=== PATIENT | male | born 1960 | race American Indian/Alaskan Native ===

== ENCOUNTER 2023-11-08 12:47 | Outpatient (AMB) | payer MEDICARE, MEDICAID, SELFPAY ==
--- NOTE | 2023-11-08 13:09 | A.OFFVIS_ITS ---
Vital Signs 11/08/23 13:14 Height 6 ft Weight 251 lb 5.231 oz BMI 34.1 BP 116/73 Blood Pressure Location Lt brachial Position Sitting Pulse 79 Intake Visit Reasons: Dysphagia Intake Note: Arcenio presents in the office as a new patient for Dysphagia. CC: Here today because he is having issues swallowing - he went to [place] for this as well. He thinks that he swallowed curosive acid and he states he was having burning in his mouth. He went to the ED at [facility] and [facility]. He states that he was eating pasta with spicy sausage and he feels that it was in the food. Audit Machine Operator Required: No Allergies codeine Allergy (Intermediate, Verified 02/16/24 15:59) Nausea HPI Comments Details: 63 y.o M who is here for dysphagia. Pt reports feeling burning sensation after having spicy sausage back in May which he felt burnt his mouth and throat. He went to ER as well for this twice in May. Pt alludes to a chemical in the sausage that may have been there but reports having the same food a couple of nights ago. Since then pt has been to [facility] and [facility] ER multiple times for same symptoms. Was seen in [facility] for same sx and reports having a laryngoscopy. ? LPR. Currently pt reports regurgitation, sensation of food getting stuck. Had MBS done which was normal. Currently omeprazole 20 BID. Pt also due for a colo. Last one was >10 years ago. no polyps per his recall. No diarrhea, rectal bleeding reported. [facility] Medical History (Updated 02/16/24 @ 16:16 by Aarti Arroyo RN) Back pain Anxiety Poor dentition Asthma Surgical History (Updated 02/16/24 @ 16:04 by Aarti Arroyo RN) History of carpal tunnel release of both wrists Hx of arthroscopy of knee History of back surgery Hx of hernia repair Hx of colonoscopy Social History (Updated 02/16/24 @ 16:05 by Aarti Arroyo RN) Are you a primary livestock caretaker to a significant other at home: No Do you presently have visiting nurse or other home services: No Patient Tobacco Use Status: Never used Tobacco Use of substances other than those prescribed or required for medical reasons: Yes Substance Use Frequency: Occasionally Have you been hit, kicked, punched, or otherwise hurt by someone within the past year? If so, by whom?: No Are you DNR?: No Advance Directives: No Advance Directives Information Provided: No Advance Directives on File: No Recently lost weight without trying: No Nutrition Risks: No Nutritional Risk Poor oral hygiene: Yes (many missing and broken teeth) Review of Systems Const All systems reviewed & are unremarkable except as noted in HPI and below Physical Exam Vital Signs: Last Vital Signs Pulse 79 11/08/23 13:14 BP 116/73 11/08/23 13:14 BMI result Body Mass Index 34.1 No apparent distress Nonicteric Abdomen soft, nondistended Alert and oriented x3, normal gait Assessment & Plan Assessment & Plan (1) Dysphagia: Code(s): R13.10 - Dysphagia, unspecified Category: Medical (2) GERD (gastroesophageal reflux disease): Code(s): K21.9 - Gastro-esophageal reflux disease without esophagitis Category: Medical (3) Colon cancer screening: Code(s): Z12.11 - Encounter for screening for malignant neoplasm of colon Category: Medical Plan Current sx likely 2/2 GERD. Attempted to educate multiple times that possible burn injury from May was self limiting and will likely not be seen on endoscopy now. EGD will be booked for reported dysphagia to r/o watson/web/EoE. Pt also due for colorectal cancer screenign and tehrefore a colonoscopy will be set up at the same time. PEG prep given. Instructions reviewed and handout given. Follow up after procedures Medications: New peg 3350-electrolytes 236-22.74-6.74 -5.86 gram (Golytely) as per split prep instructions, until fecal effluent is clear 240 mL PO Q10M 4,000 mL 0RF colonoscopy Coding Level of Care Code New Pt Level 4 (87181) Diagnoses Dysphagia R13.10 GERD (gastroesophageal reflux disease) K21.9 Colon cancer screening Z12.11
[2023-11-08 13:14] VITALS: BP 116/73; PULSE 79; BMI 34.1
== END 2023-11-08 13:55 | disposition home or self-care (01) ==
PROVIDERS: PCP Internal Medicine; Visit Provider Internal Medicine
DX: R13.10 Dysphagia, unspecified (principal); K21.9 Gastro-esophageal reflux disease without esophagitis; Z12.11 Encounter for screening for malignant neoplasm of colon
CPT/HCPCS: 99204

== ENCOUNTER → 2023-11-08 12:47 | Outpatient (BNVA) | payer MEDICARE, SELFPAY | PROVIDERS: PCP Internal Medicine; Visit Provider Internal Medicine | DX: R13.10 Dysphagia, unspecified (principal); K21.9 Gastro-esophageal reflux disease without esophagitis | CPT/HCPCS: 99202 ==

== ENCOUNTER 2024-02-20 07:29 | Day surgery (SDC) | payer MEDICARE, MEDICAID, SELFPAY ==
[2024-02-16 12:06] VITALS: BMI 34.1
[2024-02-16 16:12] VITALS: BMI 33.2
--- OUTSIDE RECORDS SUMMARY | 2024-02-20 07:32 | XMS_ITS | Continuity of Care Document ---
Author Organization [facility] Address [address] [place] [address]- Care Team Providers Care Insole Reinforcer Name Role Phone Conchis GERMAIN, Reji Donis Primary Care Physician Encounter [facility] Date(s): 12/27/23 - 01/26/24 [facility] [address] [place], [place] [address] Encounter Type: Triage Allergies, Adverse Reactions, Alerts Substance Criticality Severity Reaction Reaction Severity Status codeine Nausea Active Immunizations Given and Recorded Vaccine Date Status Refusal Reason tetanus/diphtheria/pertussis, acel(Tdap) 12/04/23 Given tetanus/diphtheria/pertussis, acel(Tdap) 1 03/15/18 Given pneumococcal 23-valent vaccine 09/28/16 Given 1Result Comment: [03/15/2018] [id number] Medications Albuterol (Eqv-Ventolin HFA) 90 mcg/inh inhalation aerosol 2 puffs, Inhalation, Every 6 hours, # 6.7 Gm, 1 Refills, Maintenance, 11/01/23 11:24:00 PM EDT, [id number], Partial fill upon patient request if the prescription is for a schedule II opioid drug., 2 puffs Inhalation Every 6 hours, 183, cm, 08/30/23 8:18:00 EDT, Height, 111.7, kg, 08/30/23 8:18:00 EDT, Dry Weight Start Date: 11/01/23 Status: Ordered Quantity: 6.7 Unit: g Repeat number: 2 albuterol 0.083% inhalation solution 1 vials, Inhalation, Every 4 hours, PRN NEEDED FOR WHEEZING J44.9, # 150 mL, 0 Refills, Maintenance, 07/24/23 11:09:00 AM EDT, [id number], 183, cm, 06/27/23 13:21:00 EDT, Height, 108.5, kg, 05/28/23 4:25:00 EDT, Dry Weight Start Date: 07/24/23 Status: Ordered Quantity: 150.0 Unit: mL Repeat number: 1 docusate sodium 100 mg oral capsule 1 capsule, By Mouth, 2 times a day, PRN NEEDED, # 180 capsule, 3 Refills, Maintenance, 11/21/23 4:31:00 PM EDT, [id number], 183, cm, 08/30/23 8:18:00 EDT, Height, 111.7, kg, 08/30/23 8:18:00 EDT, Dry Weight Start Date: 11/21/23 Status: Ordered Quantity: 180.0 Unit: capsule Repeat number: 4 Dulcolax 10 mg rectal suppository 1 supp = 10 mg, Rectally, Daily, PRN as needed for constipation, # 10 supp, 1 Refills, Maintenance,08/16/23 10:56:00 AM EDT, Suppository, [id number], Partial fill upon patient request if the prescription is for a schedule II opioid drug., 183, cm, 08/16/23 9:43:00 EDT, Height, 112.5, kg, 08/16/23 9:43:00 EDT, Dry Weight Start Date: 08/16/23 Status: Ordered Quantity: 10.0 Unit: supp Repeat number: 2 Dulera 100 mcg-5 mcg/inh inhalation aerosol 2 puffs, Inhalation, 2 times a day, # 13 Gm, 11 Refills, Maintenance, 11/06/23 1:45:00 PM EDT, Aerosol, [id number], Partial fill upon patient request if the prescription is for a schedule II opioid drug., 2 puffs Inhalation 2 times a day, 183, cm, 08/30/23 8:18:00 EDT, Height, 111.7, kg, 08/30/23 8:18:00 EDT, Dry Weight Start Date: 11/06/23 Status: Ordered Quantity: 13.0 Unit: g Repeat number: 12 Metamucil 3.4 gm/5.2 gm oral powder for reconstitution = 1.7 Gm, By Mouth, Daily, PRN as needed for constipation, # 425 Gm, 1 Refills, Maintenance, 08/16/23 10:55:00 AM EDT, REC Powder, [id number], Partial fill upon patient request if the prescription is for a schedule II opioid drug., 183, cm, 08/16/23 9:43:00 EDT, Height, 112.5, kg, 08/16/23 9:43:00 EDT, Dry Weight Start Date: 08/16/23 Status: Ordered Quantity: 425.0 Unit: g Repeat number: 2 montelukast 10 mg oral tablet 10 mg, 1, tablet, By Mouth, Daily in PM, # 30 tablet, Refills 6, Tot. Refills 6, Maintenance, 10/17/23 3:35:00 PM EDT, Route to Pharmacy Electronically, [id number], Partial fill upon patient request if the prescription is for a schedule II opioid drug., 183, cm, 08/30/23 8:18:00 EDT, Height,111.7, kg, 08/30/23 8:18:00 EDT, Dry Weight Start Date: 10/17/23 Status: Ordered Quantity: 30.0 Unit: tablet Repeat number: 7 omeprazole 20 mg oral enteric coated capsule See Instructions, TAKE 1 CAPSULE BY MOUTH 2 TIMES A DAY 30 MIN BEFORE A MEAL, # 60 capsule, 3 Refills, Maintenance, 12/13/23 10:45:00 AM EDT, [id number], 183, cm, 12/13/23 10:13:00 EDT, Height, 116, kg, 12/13/23 10:13:00 EDT, Dry Weight Start Date: 12/13/23 Status: Ordered Quantity: 60.0 Unit: capsule Repeat number: 4 sildenafil 50 mg oral tablet 1 tablet = 50 mg, By Mouth, Daily, 1 hour before sexual activity, # 6 tablet, 5 Refills, Maintenance, 12/13/23 10:46:00 AM EDT, Tablet, [id number], Partial fill upon patient request if the prescription is for a schedule II opioid drug., 183, cm, 12/13/23 10:13:00 EDT, Height, 116, kg, 12/13/23 10:13:00 EDT, Dry Weight Start Date: 12/13/23 Status: Ordered Quantity: 6.0 Unit: tablet Repeat number: 6 Problem List Condition Confirmation Course Effective Dates Status H ealth Status Informant Asthma, Unspecified Confirmed Active Displacement of Lumbar Intervertebral Disc without Myelopathy Confirmed Active Personal history of colonic polyps Confirmed 01/17/17 Active Spondylosis of cervical spine at multiple levels without myelopathy Confirmed 12/27/23 Active Obese class I Confirmed Active Obesity Confirmed Active Social History Social History Type Response Smoking Status Never smoker entered on: 12/06/16 Sex Male Sex Representation Male (finding) Patient Care team information Care Team Personnel Name: Reji Balderrama MD Position: [facility] Physician - Primary Care Member Role: PCP [address]: [address] [place] [address] [facility] [address] Telecom: Care Team Related Persons Name: DEIDRA LOUEI Name: YANETH KAUFMAN Name: STEPHANIE SHEPARD Name: STEPHANIE CABAN Insurance Providers Guarantor name: KATRIN SANCHEZ Health Plan Information #: 1 Payer: MEDICARE PART B OUTPT Member Number: NA Policy Number: NA Group Number: NA Health Plan Information #: 2 Payer: [employer] Member Number: NA Policy Number: NA Group Number: NA
[2024-02-20] MEDS: Lactated Ringers 1,000 ML 80 ML IVCONT (08:07)
[2024-02-20 08:09] VITALS: BP 124/79; PULSE 70; RESP 18; TEMP 36.6; O2SAT 95
--- NOTE | 2024-02-20 08:18 | MHC.SHP ---
Pre-Procedural Eval Section A - 24 Hr Update-Section A only Date of Service: 02/20/24 Section B - Complete if H&P > 30 days Chief Complaint: Dysphagia, screening Details of Present Illness: Back pain Anxiety Poor dentition Asthma Surgical History (Updated 02/16/24 @ 16:04 by Aarti Arroyo RN) History of carpal tunnel release of both wrists Hx of arthroscopy of knee History of back surgery Hx of hernia repair Hx of colonoscopy Allergies: Allergies Allergy/AdvReac Type Severity Reaction Status Date / Time codeine Allergy Intermediate Nausea Verified 02/20/24 07:51 Review of Systems Review of Systems Comment: Ten point ROS negative Exam Exam Comment: Gen appear: No acute distress HEENT: no icterus Chest: No overt resp distress Abd: soft, nontender, nondistended Psych: Stable affect, answering questions appropriately Neuro: A/Ox3 noted to move all extremities spontaneously Ext: no peripheral edema Plan Diagnosis/Plan: Unchanged I have reviewed the history and physical and performed a pertinent physical examination on my patient. No changes have occurred unless specified. Time Spent With Patient Time: Total time managing care of this patient today ____ minutes.
[2024-02-20 08:33] VITALS: BMI 34.9
--- NOTE | 2024-02-20 08:46 | HO.ANESPROP2 ---
[facility] Active Problems Active Problems: All Active Problems Colon cancer screening (Acute) GERD (gastroesophageal reflux disease) (Acute) Dysphagia (Acute) Past Medical History Medical History GERD (gastroesophageal reflux disease) Dysphagia Back pain Anxiety Poor dentition Asthma Functional capacity: independent ambulation Family History Family history of problems with anesthesia: No Surgical History Surgical History History of carpal tunnel release of both wrists Hx of arthroscopy of knee History of back surgery Hx of hernia repair Hx of colonoscopy History of Problems with Anesthesia: No Social History Social History Are you a primary health care aide to a significant other at home: No Do you presently have visiting nurse or other home services: No Patient Tobacco Use Status: Never used Tobacco Use of substances other than those prescribed or required for medical reasons: Yes Substance Use Frequency: Occasionally Have you been hit, kicked, punched, or otherwise hurt by someone within the past year? If so, by whom?: No Are you DNR?: No Advance Directives: No Advance Directives Information Provided: Yes Advance Directives on File: No Recently lost weight without trying: No Nutrition Risks: No Nutritional Risk Poor oral hygiene: Yes (many missing and broken teeth) Meds Allergies Allergy/AdvReac Type Severity Reaction Status Date / Time codeine Allergy Intermediate Nausea Verified 02/20/24 07:51 Active Medications: Current Medications Lactated Ringer's (Lr) 1,000 mls @ 80 mls/hr IVCONT .[id number] LILLIAM Last Admin: 02/20/24 08:07 Dose: 80 mls/hr Home Medications ?Medication ?Instructions ?Recorded ?Confirmed ?Last Taken ?Type albuterol sulfate 2.5 mg/3 mL 2.5 mg continuous nebulization Q6H 11/08/23 02/16/24 02/20/24 History (0.083 %) solution for nebulization PRN Shortness Of Breath Or Wheezing albuterol sulfate 90 mcg/actuation 2 puff inhalation Q4-6H PRN 11/08/23 02/16/24 02/20/24 History aerosol inhaler Shortness Of Breath Or Wheezing budesonide-formoterol HFA 160 inhalation 11/08/23 Unknown History mcg-4.5 mcg/actuation aerosol inhaler docusate sodium 100 mg capsule 100 mg PO DAILY PRN Constipation 11/08/23 02/16/24 Unknown History montelukast 10 mg tablet 10 mg PO BEDTIME 11/08/23 02/16/24 Unknown History omeprazole 20 mg capsule,delayed 20 mg PO BID 11/08/23 02/16/24 Unknown History release sildenafil 50 mg tablet 50 mg PO DAILY 02/16/24 02/16/24 Unknown History Exam Height,Weight and Vital Signs: Height 6 ft Weight 116.573 kg Last Vital Signs Temp 97.9 F 02/20/24 08:09 Pulse 70 02/20/24 08:09 Resp 18 02/20/24 08:09 BP 124/79 02/20/24 08:09 Pulse Ox 95 02/20/24 08:09 O2 Del Method Room Air 02/20/24 08:09 Airway Mallampati Class: III TM Dist: >3cm Neck ROM: Full Heart: RRR Lungs: CTA Assessment and Plan Assessment Anesthesia Assessment: Anesthesia Plan Discussed and Chart Reviewed Final Anesthetic Review Family History of Problems with Anesthesia: No History of Problems with Anesthesia: No NPO: Yes ASA Class: III Final Preanesthetic Review: Meds/Allgs Chart Reviewed, Consent Obtained/Reviewed and Anes Risks/Benef Reviewed Patient Risk: Intermediate Procedure Risk: Low Anesthetic Plan Anesthetic Plan: MAC: Disposition: Standard PACU
[2024-02-20 10:07] VITALS: BP 94/59; PULSE 71; RESP 16; TEMP 36.3; O2SAT 94
--- NOTE | 2024-02-20 10:15 | P.OPN-COLO_ITS ---
Colonoscopy Operative Note Operative Note Date of Service: 02/20/24 Narrative: Procedure: Upper endoscopy and colonoscopy Indication: Dysphagia, screening Endoscopist: Olinda Velasco MD Anesthesia Provider: Francisca Mcnair MD Anesthesia type: MAC Instrument: [id number] and [id number] EGD Procedure:?? The procedure, indications, preparation and potential complications were reviewed with the patient, who indicated understanding and gave written informed consent to proceed. The endoscope was introduced through the mouth, and advanced to the 2nd part of the duodenum. The mucosa was carefully examined on slow withdrawal of the endoscope. The patient tolerated the procedure well. There were no immediate complications.? EGD Findings:? * Esophagus:? Normal esophageal mucosa was noted. The Z-line was at 43 cm. Cold forceps biopsies were taken from middle and lower esophagus to rule out eosinophilic esophagitis. * Stomach:? Normal gastric mucosa. Retroflexion was performed in the cardia. * Duodenum:? Normal duodenal mucosa. Additional interventions: A soft tip Savary wire was advanced through the biopsy channel and left in the antrum. The gastroscope was then backed out. A Savary Nohemy bougie was advanced over the guidewire and esophagus was dilated to 19 mm. On relook, no tear or heme was noted. Colonoscopy Procedure:? The patient was then turned for the colonoscopy. A digital rectal exam was performed which was normal abnormal for external hemorrhoids.? A distal attachment cap was affixed to the tip of the scope and the colonoscope was then inserted through the anus and advanced through the colon and advanced to the cecum at 95 cm and terminal ileum.? Appendiceal orifice and ileocecal valve were identified. Mucosa was carefully examined under high definition white light as the instrument was slowly withdrawn in a retrograde panoramic fashion. Retroflexion was performed in rectum. The procedure was somewhat difficult due to redundant colon and large pannus precluding effective pressure. The quality of the prep was BBPS: 2+2+3 = adequate Withdrawal time 17 minutes Limitations: No limitations Findings: Mucosa: Normal colon and terminal ileum mucosa. Protruding lesions: * 2 sessile polyps of size 2 mm were noted in the cecum. Cold snare polypectomy was performed. The polyps were completely removed and retrieved. * 1 sessile polyp of size 4 mm was noted in the ascending colon. Cold snare polypectomy was performed. The polyp was completely removed and retrieved. * 1 sessile polyp of size 3 mm was noted in the transverse colon. Cold snare polypectomy was performed. The polyp was completely removed and retrieved. * Small internal hemorrhoids without stigmata of recent bleeding. Excavated lesions: * Mild diverticulosis of the sigmoid colon. Impression: 1. Normal esophagus (biopsy, dilation) 2. Normal stomach 3. Normal duodenum 4. Normal colon and terminal ileum mucosa 5. Total of 4 polyps removed 6. Internal and external hemorrhoids 7. Diverticulosis Recommendations:?? * No esophagitis or narrowing noted. * Follow-up path results * Avoid NSAIDs * Repeat colonoscopy for CRC screening in 3 years if 3 or more polyps are adenomas.
[2024-02-20 10:22] VITALS: BP 102/79; PULSE 79; RESP 16; O2SAT 94
--- NOTE | 2024-02-20 10:34 | P.CONAN_ITS ---
[facility] Active Problems Active Problems: All Active Problems Colon cancer screening (Acute) GERD (gastroesophageal reflux disease) (Acute) Dysphagia (Acute) Past Medical History Medical History GERD (gastroesophageal reflux disease) Dysphagia Back pain Anxiety Poor dentition Asthma Functional capacity: independent ambulation Family History Family history of problems with anesthesia: No Surgical History Surgical History History of carpal tunnel release of both wrists Hx of arthroscopy of knee History of back surgery Hx of hernia repair Hx of colonoscopy History of Problems with Anesthesia: No Social History Social History Are you a primary home care music therapist to a significant other at home: No Do you presently have visiting nurse or other home services: No Patient Tobacco Use Status: Never used Tobacco Use of substances other than those prescribed or required for medical reasons: Yes Substance Use Frequency: Occasionally Have you been hit, kicked, punched, or otherwise hurt by someone within the past year? If so, by whom?: No Are you DNR?: No Advance Directives: No Advance Directives Information Provided: Yes Advance Directives on File: No Recently lost weight without trying: No Nutrition Risks: No Nutritional Risk Poor oral hygiene: Yes (many missing and broken teeth) Meds Allergies Allergy/AdvReac Type Severity Reaction Status Date / Time codeine Allergy Intermediate Nausea Verified 02/20/24 07:51 Active Medications: Current Medications Lactated Ringer's (Lr) 1,000 mls @ 80 mls/hr IVCONT .[id number] LILLIAM Last Admin: 02/20/24 08:07 Dose: 80 mls/hr Naloxone HCl (Naloxone Hcl 0.4 Mg/Ml Vial) 0.04 mg IVPUSH Q5M PRN PRN Reason: Excessive sedation or RR < 8 Home Medications ?Medication ?Instructions ?Recorded ?Confirmed ?Last Taken ?Type albuterol sulfate 2.5 mg/3 mL 2.5 mg continuous nebulization Q6H 11/08/23 02/16/24 02/20/24 History (0.083 %) solution for nebulization PRN Shortness Of Breath Or Wheezing albuterol sulfate 90 mcg/actuation 2 puff inhalation Q4-6H PRN 11/08/23 02/16/24 02/20/24 History aerosol inhaler Shortness Of Breath Or Wheezing budesonide-formoterol HFA 160 inhalation 11/08/23 Unknown History mcg-4.5 mcg/actuation aerosol inhaler docusate sodium 100 mg capsule 100 mg PO DAILY PRN Constipation 11/08/23 02/16/24 Unknown History montelukast 10 mg tablet 10 mg PO BEDTIME 11/08/23 02/16/24 Unknown History omeprazole 20 mg capsule,delayed 20 mg PO BID 11/08/23 02/16/24 Unknown History release sildenafil 50 mg tablet 50 mg PO DAILY 02/16/24 02/16/24 Unknown History Exam Height,Weight and Vital Signs: Height 6 ft Weight 116.573 kg Last Vital Signs Temp 97.4 F 02/20/24 10:07 Pulse 79 02/20/24 10:22 Resp 16 02/20/24 10:22 BP 102/79 02/20/24 10:22 Pulse Ox 94 02/20/24 10:22 O2 Del Method Room Air 02/20/24 10:22 Airway Mallampati Class: III TM Dist: >3cm Neck ROM: Full Heart: RRR Lungs: CTA Assessment and Plan Assessment Anesthesia Assessment: Anesthesia Plan Discussed and Chart Reviewed Final Anesthetic Review Family History of Problems with Anesthesia: No History of Problems with Anesthesia: No NPO: Yes ASA Class: III Final Preanesthetic Review: Meds/Allgs Chart Reviewed, Consent Obtained/Reviewed and Anes Risks/Benef Reviewed Patient Risk: Intermediate Procedure Risk: Low Anesthetic Plan Anesthetic Plan: MAC: Disposition: Standard PACU
--- NOTE | 2024-02-20 10:34 | HO.POSTANES ---
Post Anesthesia Evaluation Post Anesthesia Evaluation Date of Service: 02/20/24 Vital Signs: Vital Signs Temp Pulse Resp BP Pulse Ox O2 Del Method 02/20/24 10:22 79 16 102/79 94 Room Air 02/20/24 10:07 97.4 F 71 16 94/59 L 94 Room Air 02/20/24 08:09 97.9 F 70 18 124/79 95 Room Air Anesthesia: Monitored Mental Status: Awake Pain Control: Satisfactory Nausea/Vomiting: None Hydration: Adequate Anesthesia-Related Issues: No Anes. Related Issues
[2024-02-20 10:37] VITALS: BP 108/75; PULSE 68; RESP 16; TEMP 36.3; O2SAT 95
== END 2024-02-20 11:38 | disposition home or self-care (01) ==
PROVIDERS: PCP Internal Medicine; Visit Provider Internal Medicine
PROC: (CPT 45380; principal; 2024-02-20 09:10)
DX: Z12.11 Encounter for screening for malignant neoplasm of colon (principal); D12.0 Benign neoplasm of cecum; D12.2 Benign neoplasm of ascending colon; D12.3 Benign neoplasm of transverse colon; K57.30 Diverticulosis of large intestine without perforation or abscess without bleeding; K64.8 Other hemorrhoids; K64.4 Residual hemorrhoidal skin tags; R13.10 Dysphagia, unspecified; K21.9 Gastro-esophageal reflux disease without esophagitis; K22.89 Other specified disease of esophagus; K08.9 Disorder of teeth and supporting structures, unspecified; J45.909 Unspecified asthma, uncomplicated; M54.9 Dorsalgia, unspecified; F41.9 Anxiety disorder, unspecified; Z79.899 Other long term (current) drug therapy; Z88.5 Allergy status to narcotic agent; Z98.890 Other specified postprocedural states
CPT/HCPCS: 45380; 43248; 43239; 88305; C1769; J1596; J2003; J2704

== ENCOUNTER → 2024-02-20 07:29 | Outpatient (BNV) | payer MEDICARE, MEDICAID, SELFPAY | PROVIDERS: PCP Internal Medicine; Visit Provider Internal Medicine | DX: Z12.11 Encounter for screening for malignant neoplasm of colon (principal); D12.2 Benign neoplasm of ascending colon; D12.0 Benign neoplasm of cecum; D12.3 Benign neoplasm of transverse colon; R13.10 Dysphagia, unspecified | CPT/HCPCS: 43239; 43248; 45385 ==

== ENCOUNTER 2024-03-04 11:07 | Outpatient (AMB) | payer MEDICARE, MEDICAID, SELFPAY ==
--- NOTE | 2024-03-04 11:11 | MHC.OFFVIS ---
Vital Signs 03/04/24 11:22 Height 6 ft Weight 257 lb BMI 34.9 BP 120/76 Blood Pressure Location Lt brachial Position Sitting Pulse 57 Intake Visit Reasons: s/p egd/colon Intake Note: Arcenio presents in the office as a EGD COLO follow up. CC: at the moment he is on treatment for his abcess in his tooth to be taken care of on Monday. HE is here for results wondering why he could not do it over the phone. Intelligence Officer Basic Required: No Allergies codeine Allergy (Intermediate, Verified 03/04/24 11:24) Nausea HPI Comments Details: 63 y.o M who is here for dysphagia. Pt reports feeling burning sensation after having spicy sausage back in May which he felt burnt his mouth and throat. He went to ER as well for this twice in May. Pt alludes to a chemical in the sausage that may have been there but reports having the same food a couple of nights ago. Since then pt has been to [facility] and [facility] ER multiple times for same symptoms. Was seen in [facility] for same sx and reports having a laryngoscopy. ? LPR. Currently pt reports regurgitation, sensation of food getting stuck. Had MBS done which was normal. Currently omeprazole 20 BID. Pt also due for a colo. Last one was >10 years ago. no polyps per his recall. No diarrhea, rectal bleeding reported. 02/20/24: 1. Normal esophagus (biopsy, dilation) 2. Normal stomach 3. Normal duodenum 4. Normal colon and terminal ileum mucosa 5. Total of 4 polyps removed 6. Internal and external hemorrhoids 7. Diverticulosis Path: A. Esophagus, lower, biopsy: Squamous mucosa with mild spongiosis, focal intraepithelial neutrophils, and few intraepithelial eosinophils (up to 2 per high-power field) consistent with esophagitis; no columnar mucosa present. B. Esophagus, middle, biopsy: Squamous mucosa with focal minimal spongiosis, otherwise no specific change, no active inflammation; no columnar mucosa present. C. Colon, ascending, polyp: Tubular adenoma (2 pieces); negative for high-grade dysplasia and carcinoma. D. Colon, cecal polyps: Tubular adenoma (1 piece); negative for high-grade dysplasia and carcinoma. E. Colon, transverse, polyp: Tubular adenoma; negative for high-grade dysplasia and carcinoma. 03/04/24: Here for post procedure follow up. Continues to report sensation of food getting stuck in upper throat. Doesnt think dilation helped. Reports he was told that the spine was potentially pushing the esophagus and wonders if thats the persistent issue (?? DISH). Already has a referral to be seen in [place] for this. IN terms of polyps, he is aware he needs a colonoscopy in 3 years. [facility] Medical History GERD (gastroesophageal reflux disease) Dysphagia Back pain Anxiety Poor dentition Asthma Surgical History History of esophagogastroduodenoscopy (EGD) History of carpal tunnel release of both wrists Hx of arthroscopy of knee History of back surgery Hx of hernia repair Hx of colonoscopy Social History Are you a primary medicare biller to a significant other at home: No Do you presently have visiting nurse or other home services: No Patient Tobacco Use Status: Never used Tobacco Physical Exam Vital Signs: BMI result Body Mass Index 34.9 Assessment & Plan Assessment & Plan (1) GERD (gastroesophageal reflux disease): Code(s): K21.9 - Gastro-esophageal reflux disease without esophagitis Category: Medical (2) Dysphagia: Code(s): R13.10 - Dysphagia, unspecified Category: Medical (3) Personal history of colonic polyps: Code(s): Z86.0100 - Personal history of colon polyps, unspecified Category: Medical Plan Reassured pt of the results from EGD. Reviewed that no intraluminal pathology to explain his intermittent sensation of dysphagia. Has already had MBS done. IS due to see a ?? automotive product specialist (pt unsure who he will be seeing) in [place] for what sounds like DISH by his description. Can decrease omeprazole 20 to once daily. In terms of polyps, he will need a repeat colonoscopy in 3 years. Reminder set. PRN follow up Coding Level of Care Code Est Pt Level 3 (70433) Diagnoses GERD (gastroesophageal reflux disease) K21.9 Dysphagia R13.10 Personal history of colonic polyps Z86.0100
[2024-03-04 11:22] VITALS: BP 120/76; PULSE 57; BMI 34.9
--- OUTSIDE RECORDS SUMMARY | 2024-03-04 12:59 | XMS_ITS | Continuity of Care Document ---
Author Organization [facility] Address [address] [place] [address]- Care Team Providers Care Peripheral Vascular Tech Name Role Phone Conchis GERMAIN, Reji Donis Primary Care Physician Encounter [facility] Date(s): 01/05/24 - 02/04/24 [facility] [address] [place], [place] [address] Encounter Type: Triage Allergies, Adverse Reactions, Alerts Substance Criticality Severity Reaction Reaction Severity Status codeine Nausea Active Immunizations Given and Recorded Vaccine Date Status Refusal Reason tetanus/diphtheria/pertussis, acel(Tdap) 12/04/23 Given tetanus/diphtheria/pertussis, acel(Tdap) 1 03/15/18 Given pneumococcal 23-valent vaccine 09/28/16 Given 1Result Comment: [03/15/2018] [id number] Medications Albuterol (Eqv-Ventolin HFA) 90 mcg/inh inhalation [...] 0 Refills, Maintenance, 07/24/23 11:09:00 AM EDT, [id number], 183, cm, 06/27/23 13:21:00 EDT, Height, 108.5, kg, 05/28/23 4:25:00 EDT, Dry Weight Start Date: 07/24/23 Status: Ordered Quantity: 150.0 Unit: mL Repeat number: 1 docusate sodium 100 mg oral capsule 1 capsule, By Mouth, 2 times a day, PRN NEEDED, # 180 capsule, 3 Refills, Maintenance, 11/21/23 4:31:00 PM EDT, [facility]/pharmacy #[id number], 183, cm, 08/30/23 8:18:00 EDT, Height, 111.7, kg, 08/30/23 8:18:00 EDT, Dry Weight Start Date: 11/21/23 Status: Ordered Quantity: 180.0 Unit: capsule Repeat number: 4 Dulcolax 10 mg rectal suppository 1 supp = 10 mg, Rectally, Daily, PRN as needed for constipation, # 10 supp, 1 Refills, Maintenance,08/16/23 10:56:00 AM EDT, Suppository, [facility]/pharmacy #[id number], Partial fill upon patient request if [...] Refills, Maintenance, 11/06/23 1:45:00 PM EDT, Aerosol, [facility]/pharmacy #[id number], Partial fill upon patient request if [...] Maintenance, 08/16/23 10:55:00 AM EDT, REC Powder, [facility]/pharmacy #[id number], Partial fill upon patient request if [...] 3:35:00 PM EDT, Route to Pharmacy Electronically, [facility]/pharmacy #[id number], Partial fill upon patient request if [...] Refills, Maintenance, 12/13/23 10:46:00 AM EDT, Tablet, [facility]/pharmacy #[id number], Partial fill upon patient request if [...] Team Personnel Name: Reji Balderrama MD Position: [facility] Physician - Primary Care Member Role: PCP Address: [address] [place] [address] Adult & Pediatric Medicine [address] Telecom: Care Team Related Persons Name: DEIDRA LOUIE Name: YANETH KAUFMAN Name: STEPHANIE SHEPARD Name: STEPHANIE CABAN Insurance Providers Guarantor name: KATRIN SANCHEZ Health Plan Information #: 1 Payer: MEDICARE PART B OUTPT Member Number: NA Policy Number: NA Group Number: NA Health Plan Information #: 2 Payer: [employer] Member Number: NA Policy Number: NA Group Number: NA
== END 2024-03-04 13:12 | disposition home or self-care (01) ==
PROVIDERS: PCP Internal Medicine; Visit Provider Internal Medicine
DX: K21.9 Gastro-esophageal reflux disease without esophagitis (principal); R13.10 Dysphagia, unspecified; Z86.0100 Personal history of colon polyps, unspecified
CPT/HCPCS: 99213

== ENCOUNTER → 2024-03-04 11:07 | Outpatient (BNVA) | payer MEDICARE, SELFPAY | PROVIDERS: PCP Internal Medicine; Visit Provider Internal Medicine | DX: K21.9 Gastro-esophageal reflux disease without esophagitis (principal); R13.10 Dysphagia, unspecified; Z86.0100 Personal history of colon polyps, unspecified | CPT/HCPCS: 99212 ==